=== PATIENT | male | born 1995 | race African-American/Black ===

== ENCOUNTER 2018-05-01 07:54 | Emergency (ER) | payer SELFPAY ==
[2018-05-01 08:10] LABS: ADD MAN DIFF? NO
[2018-05-01 08:15] LABS: BASOPHIL # 0.1 10^3/ul (0.0-0.1); BASOPHILS % 0.9 % (0.0-2.0); EOSINOPHILS # 0.2 10^3/ul (0.0-0.5); EOSINOPHILS % 2.1 % (0.0-7.0); HEMATOCRIT 38.5 % (42.0-52.0); HEMOGLOBIN 13.5 g/dl (14.0-18.0); LYMPHOCYTES # 4.2 10^3/ul (0.8-2.9); MEAN CORPUSCULAR HEMOGLOBIN 29.9 pg (29.0-33.0); MEAN CORPUSCULAR HGB CONC 35.1 g/dl (32.0-37.0); MEAN CORPUSCULAR VOLUME 85.4 fl (82.0-101.0); MEAN PLATELET VOLUME 9.2 fl (7.4-10.4); MONOCYTE # 0.3 10^3/ul (0.3-0.9); MONOCYTES % 3.6 % (0.0-11.0); NEUTROPHIL # 3.4 10^3/ul (1.6-7.5); NEUTROPHILS % 41.9 % (39.0-77.0); PLATELET COUNT 253 10^3/UL (140-415); RED BLOOD COUNT 4.51 10^6/ul (4.70-6.10); RED CELL DISTRIBUTION WIDTH 11.5 % (11.5-14.5)
[2018-05-01 08:15] LABS: WHITE BLOOD COUNT 8.1 10^3/ul (4.8-10.8)
[2018-05-01 08:33] LABS: ANION GAP 16 (5-13); BLOOD UREA NITROGEN 15 mg/dl (7-20); CALCIUM 9.4 mg/dl (8.4-10.2); CARBON DIOXIDE 18 mmol/L (21-31); CHLORIDE 108 mmol/L (97-110); CREATININE 1.18 mg/dl (0.61-1.24); Estimated GFR > 60 mL/min (>60); GLUCOSE 153 mg/dl (70-220); POTASSIUM 4.6 mmol/L (3.5-5.1); SODIUM 142 mmol/L (135-144)
[2018-05-01] MEDS: LORAZEPAM 2 MG INJ IV ×2 (09:35)
[2018-05-01] MEDS: LEVETIRACETAM 1000 MG (PMX) 100 ML IVPB (09:36)
[2018-05-01] MEDS: HALOPERIDOL 5 MG INJ IM ×2 (09:36)
[2018-05-01] MEDS: DIPHENHYDRAMINE 50 MG INJ IV (09:44)
[2018-05-01] MEDS: HALOPERIDOL 5 MG INJ IV (09:54)
[2018-05-01 13:44] LABS: ETHANOL < 10.0 mg/dl; SALICYLATE < 1.0 mg/dl (5.0-30.0)
[2018-05-01 13:44] LABS: ACETAMINOPHEN < 10.0 ug/ml (10.0-30.0)
[2018-05-01 19:06] LABS: AMPHETAMINE/METHAMPHETAMINE Negative (NEGATIVE); BARBITURATES Negative (NEGATIVE); BENZODIAZEPINES Negative (NEGATIVE); CANNABINOIDS Positive (NEGATIVE); COCAINE Negative (NEGATIVE); OPIATES Negative (NEGATIVE)
== END 2018-05-01 22:16 | disposition home or self-care (01) ==
LOC: E/R 07:54
DX: G40.909 Epilepsy, unspecified, not intractable, without status epilepticus (principal); R41.82 Altered mental status, unspecified; F03.91 Unspecified dementia, unspecified severity, with behavioral disturbance; J45.909 Unspecified asthma, uncomplicated
CPT/HCPCS: 36415; 80048; 80307; 82962; 85025; 96365; 96372; 96375; 99291-25